=== PATIENT | male | born 1985 | race Caucasian/White ===

== ENCOUNTER 2016-06-16 19:21 | Emergency (ER) | payer BC ==
[2016-06-16] MEDS ORDERED: ACETAMINOPHEN 325 MG TABLET PO ONE (20:34)
[2016-06-16] MEDS ORDERED: KETOROLAC TROMETHAMINE 30 MG/ML VIAL ONE (21:48)
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
== END 2016-06-16 22:29 | disposition home or self-care (01) ==
LOC: ER 19:21
DX: R50.9 Fever, unspecified (principal); R42 Dizziness and giddiness; M79.1 Myalgia; R53.83 Other fatigue; R53.81 Other malaise
CPT/HCPCS: 87449; 96361; 96374; 99284; J1885